=== PATIENT | male | born 1970 | race Caucasian/White ===

== ENCOUNTER 2021-04-28 05:25 | Emergency (ER) | payer OTHER ==
[~2021-04-28] VITALS: Ht 190.5 cm; Wt 77.1 kg
[2021-04-28 05:26] VITALS: BP 134/87
[2021-04-28 06:03] LABS: HEMATOCRIT 40.5 % (42.0-52.0); HEMOGLOBIN 13.5 gm/dL (14.0-18.0); MCH 28.7 pg (26.0-34.0); MCHC 33.4 g/dL (28.0-37.0); MCV 85.9 fL (80.0-100.0); MPV 7.8 fl. (7.2-11.1); RBC 4.71 mil/uL (4.50-6.00); RDW-CV 13.2 % (10.5-14.5); WBC 4.1 thou/uL (4.0-11.0)
[2021-04-28 06:10] LABS: CALCIUM 8.6 mg/dL (8.5-10.1); CREATININE 0.9 mg/dL (0.6-1.3); POTASSIUM 3.9 mmol/L (3.5-5.1)
[2021-04-28 06:13] LABS: URINE BILIRUBIN NEGATIVE (Negative); URINE BLOOD NEGATIVE (Negative); URINE CLARITY CLEAR; URINE COLOR STRAW; URINE GLUCOSE-RANDOM NEGATIVE (Negative); URINE KETONES NEGATIVE (Negative); URINE LEUKOCYTES-REFLEX NEGATIVE (Negative); URINE NITRITE-REFLEX NEGATIVE (Negative); URINE PROTEIN NEGATIVE (Negative); URINE UROBILINOGEN 0.2 E.U./dl (0.2-1.0)
[2021-04-28 06:14] LABS: ALBUMIN 3.8 g/dL (3.4-5.0); TOTAL BILIRUBIN 0.5 mg/dL (<0.1-1.0); TOTAL PROTEIN 6.6 g/dL (6.4-8.2)
[2021-04-28 06:17] LABS: AMP/METHAMP Negative (Negative); BARBITURATES Negative (Negative); BENZODIAZEPINES Negative (Negative); COCAINE Negative (Negative); METHADONE Negative (Negative); OPIATES Negative (Negative); PCP Negative (Negative); THC Negative (Negative)
[2021-04-28] MEDS ORDERED: TORADOL 10 MG T10 MG PO (06:58)
[2021-04-28] MEDS ORDERED: HYDROCODON-ACE1 EAC7 PO (06:58)
== END 2021-04-28 07:16 | disposition home or self-care (01) ==
LOC: M.ERS 05:25
PROVIDERS: Personal Emergency Response Attendant
DX: M54.9 Dorsalgia, unspecified (principal); F10.129 Alcohol abuse with intoxication, unspecified